=== PATIENT | female | born 1995 | race Caucasian/White ===

== ENCOUNTER → 2019-03-03 14:10 | Observation (INO) ==
[2019-03-02] MEDS: Betamethasone Acet/SodPhos 30 MG/5 ML VIAL IM SCH (13:40)
[2019-03-02 13:54] LABS: Bilirubin,Urine Negative (Negative); Blood,Urine Negative (Negative); Clarity,Urine Clear (Clear); Color,Urine Yellow (Yellow); Glucose,Urine (UA) Normal (Normal); Ketones,Urine Trace mg/dL (Negative); Leukocyte Esterase,Urine Trace (Negative); Nitrite,Urine Negative (Negative); PH,Urine 6.5 pH Units (5.0-8.0); Protein,Urine Negative (Neg-Trace); Specific Gravity,Urine 1.008 (1.010-1.025); Urobilinogen,Urine Normal (Normal)
[2019-03-02 13:56] LABS: Bacteria,Urine Few per hpf (None-Few); Basophils % 0.4 %; Eosinophils # 0.1 K/mcL (0.0-0.6); Eosinophils % 0.9 %; Hematocrit 31.8 % (35.3-44.9); Hemoglobin 10.6 g/dL (11.5-15.4); Hyaline Casts,Urine None Seen per lpf (None-Few); Immature Granulocytes % 0.8 % (0-4); Lymphocytes # 1.3 K/mcL (0.6-4.6); Lymphocytes % 16.8 %; Mean Corpuscular HGB Conc 33.3 g/dL (31.6-35.5); Mean Corpuscular Hemoglobin 28.6 pg (28.0-33.3); Mean Platelet Volume 12.3 fL (9.4-12.4); Monocytes # 0.4 K/mcL (0.0-1.3); Monocytes % 5.1 %; Neutrophils # 5.8 K/mcL (1.6-8.9); Platelet Count 263 K/mcL (140-400); RBC,Urine 0-3 per hpf (0-3); Red Blood Count 3.71 M/mcL (3.82-4.97); Red Cell Distribution Width 13.2 % (11.5-14.5); Squamous Epithelial Cell,Urine Many per lpf (None-Few); White Blood Count 7.6 K/mcL (4.3-11.1)
[2019-03-02 14:42] LABS: Mean Corpuscular Volume 85.7 fL (83.0-100.0)
[2019-03-02 15:10] LABS: Amphetamine Screen,Urine Negative ng/mL (Cutoff=1000); Barbiturate Screen,Urine Negative ng/mL (Cutoff=200); Benzodiazepines Screen,Urine Negative ng/mL (Cutoff=200); Cannabinoid Screen,Urine Negative ng/mL (Cutoff = 50); Cocaine Screen,Urine Negative ng/mL (Cutoff= 300); Opiate Screen,Urine Negative ng/mL (Cutoff=300); Phencyclidine Screen,Urine Negative ng/mL (Cutoff=25)
[2019-03-03] MEDS: NIFEdipine 10 MG CAPSULE PO SCH ×2 (04:27→10:14)
[2019-03-03] MEDS: Betamethasone Acet/SodPhos 30 MG/5 ML VIAL IM SCH (13:44)
[~2019-03-03 14:10] MED LIST: *HR* Metformin 500 MG TABLET PO SCH; 0.9 % Sodium Chloride 1,000 ML IVC ONE; 0.9 % Sodium Chloride 1,000 ML IVC SCH; 0.9 % Sodium Chloride 1,000 ML ONE; NIFEdipine 10 MG CAPSULE PO ONE; NIFEdipine 10 MG CAPSULE PO STA; Penicillin G Potassium 2,500,000 UNIT in 0.9 % Sodium Chloride 100 ML IVPB SCH; Penicillin G Potassium 5,000,000 UNIT in 0.9 % Sodium Chloride Mini Bag 100 ML IVPB ONE; Ringers Solution, Lactated 1,000 ML IVC ONE; Ringers Solution, Lactated 1,000 ML IVC SCH; Terbutaline 1 MG/ML VIAL SQ ONE
== END | disposition home or self-care (01) ==
LOC: 1NENULAB
PROVIDERS: ADMIT Advanced Practice Midwife; ATTEND Advanced Practice Midwife

== ENCOUNTER → 2019-03-14 17:40 | Observation (INO) ==
[2019-03-14 16:03] LABS: Amphetamine Screen,Urine Negative ng/mL (Cutoff=1000); Barbiturate Screen,Urine Negative ng/mL (Cutoff=200); Benzodiazepines Screen,Urine Negative ng/mL (Cutoff=200); Cannabinoid Screen,Urine Negative ng/mL (Cutoff = 50); Cocaine Screen,Urine Negative ng/mL (Cutoff= 300); Opiate Screen,Urine Negative ng/mL (Cutoff=300); Phencyclidine Screen,Urine Negative ng/mL (Cutoff=25)
[2019-03-14 16:41] LABS: Candida DNA DETECTED (Not Detect); Gardnerella DNA Not Detected (Not Detect); Trichomonas DNA Not Detected (Not Detect)
== END | disposition home or self-care (01) ==
LOC: 1NENULAB
PROVIDERS: ADMIT Registered Nurse; ATTEND Registered Nurse